=== PATIENT | female | born 1990 | race Caucasian/White ===

== ENCOUNTER 2016-07-18 17:03 | Inpatient (IN) | payer OTHER ==
[2016-07-18] VITALS (7 sets, daily range): BP systolic 103–120; BP diastolic 63–72
[~2016-07-18] VITALS: Ht 160 cm; Wt 74.4 kg
[~2016-07-18 17:03] MED LIST: ENDOCET 5-3251 EACH PO; IBUPROFEN800 MG PO; Motrin PO; PERCOCET 5/31 TABLET PO; PRENATAL TABLE1 EAC3 PO
[2016-07-18 18:15] LABS: MCH 29.4 PG (29.0-34.0); MCHC 33.5 G/DL (30.0-36.0); MCV 87.6 FL (83-99); MEAN PLAT.VOLUME 10.9 uM^3 (9.5-12.4); PLATELET COUNT 236 K/uL (156-360); RBC DIS.WIDTH-SD 43.6 % (39-53); RED BLOOD COUNT 3.88 M/uL (3.80-5.20); WHITE BLOOD COUNT 13.1 K/uL (4.1-10.2)
[2016-07-18 18:45] LABS: HEMATOLOGY COMMENT 1 REV; PLAT.SUFFICIENCY ADEQUATE; USER ID BW1
[2016-07-18 18:47] LABS: EOSINOPHIL (%) 2.2 % (0-5); EOSINOPHIL COUNT 0.3 K/uL (0-0.3); IMMATURE GRANULOCYTE (%) 0.7 % (0.0-0.7); IMMATURE GRANULOCYTE COUNT 0.1 K/uL; LYMPHOCYTE COUNT 2.1 K/uL (1.0-2.8); MONOCYTE (%) 4.6 % (3-12); MONOCYTE COUNT 0.6 K/uL (0-0.8); NEUTROPHIL (%) 76.5 % (45-76); NEUTROPHIL COUNT 10.1 K/uL (1.8-6.4)
[2016-07-19] VITALS (16 sets, daily range): BP systolic 94–137; BP diastolic 55–77
[2016-07-20 07:46] VITALS: BP 91/62
[2016-07-20] MEDS ORDERED: MOTRIN800 MG PO (08:17)
[2016-07-20 15:00] VITALS: BP 98/60
== END 2016-07-20 16:15 | disposition home or self-care (01) | DRG 775 ==
LOC: LDRP-OP 17:03 → 2WEST 17:04
PROVIDERS: Midwife
DX: O62.3 Precipitate labor (principal); O42.02 Full-term premature rupture of membranes, onset of labor within 24 hours of rupture; Z3A.37 37 weeks gestation of pregnancy; Z37.0 Single live birth; Z87.891 Personal history of nicotine dependence
CPT/HCPCS: 85025; G0378